=== PATIENT | male | born 1935 | race Caucasian/White ===

== ENCOUNTER → 2017-07-26 | Outpatient (CLI) | payer OTHER | LOC: BHFA 13:00 | PROVIDERS: ATTEND Internal Medicine Interventional Cardiology | DX: I25.10 Atherosclerotic heart disease of native coronary artery without angina pectoris (principal); R06.02 Shortness of breath | CPT/HCPCS: 78452; 93017; A9500; J2785 ==

== ENCOUNTER → 2017-08-06 | Outpatient (CLI) | payer OTHER | LOC: BHFA 14:45 | PROVIDERS: ATTEND Internal Medicine | DX: I25.10 Atherosclerotic heart disease of native coronary artery without angina pectoris (principal); R06.02 Shortness of breath ==

== ENCOUNTER → 2017-08-28 | Outpatient (CLI) | payer OTHER | LOC: BHFA 08:00 | PROVIDERS: ATTEND Internal Medicine Cardiovascular Disease | DX: I25.10 Atherosclerotic heart disease of native coronary artery without angina pectoris (principal); I42.9 Cardiomyopathy, unspecified | CPT/HCPCS: 78472; A9560 ==

== ENCOUNTER 2018-01-27 08:29 | Inpatient (IN) | payer OTHER ==
[2018-01-27] MEDS ORDERED: NS 1,000 ML IV ONE (08:33)
[2018-01-27] MEDS ORDERED: diphenhydrAMINE 25 MG CAP PO ONE (08:33)
[2018-01-27] MEDS ORDERED: FAMOTIDINE 20 MG TAB PO ONE (08:33)
[2018-01-27] MEDS ORDERED: ASPIRIN EC 325 MG TAB PO ONE (08:33)
[2018-01-27] MEDS ORDERED: DIAZEPAM 5 MG TAB PO ONE (08:33)
[2018-01-27 09:28] LABS: PLATELET COUNT 191 10^3/uL (150-400)
[2018-01-27 09:36] LABS: INR 1.19 (0.83-1.16); PROTIME(PATIENT) 15.3 SEC (12.0-15.0)
[2018-01-27] MEDS ORDERED: fentaNYL 100 MCG/2 ML INJ ONE (09:48)
[2018-01-27] MEDS ORDERED: MIDAZOLAM 2 MG/2 ML VIAL ONE ×2 (09:48)
[2018-01-27] MEDS ORDERED: VERAPAMIL 5 MG/2 ML VIAL ONE (09:48)
[2018-01-27] MEDS ORDERED: LIDOCAINE 1% 300 MG/30 ML SDV ONE (09:48)
[2018-01-27] MEDS ORDERED: IOPAMIDOL (ISOVUE-370) 150 ML BTL IV ONE (09:49)
[2018-01-27] MEDS ORDERED: HEPARIN 10,000 UNIT/10 ML MDV (1,000 UNIT/ML) ONE (09:49)
--- NOTE | 2018-01-27 10:57 | PDHPUP ---
History & Physical Update H&P update statement: This history and physical update is based on an assessment of the patient which was completed after admission or registration (within 24 hours), but prior to the surgery/procedure. H&P update: H&P reviewed & patient examined, no change in patient's condition since H&P completed
--- NOTE | 2018-01-27 10:58 | PDPROPOC ---
Sedation Plan of Care Sedation Plan of Care: vital signs stable, mental status noted, patient educated of risks, benefits, alternatives, patient can tolerate sedation ASA Classification: ASA 2 Planned drugs: fentanyl, midazolam Mallampati Score: Class 2 Mallampati Reference Image: Patient passed 3-3-2 rule?: Yes
[2018-01-27] MEDS ORDERED: CHLOROPROCAINE HCL 2% 400 MG/20 ML VIAL IF ONE (11:15)
--- NOTE | 2018-01-27 12:14 | PDDXCAT ---
Diagnostic Cath Note - . Date: 01/27/18 Director Export: Tristen Indication: other (Cardiomyopathy, mitral regurgitation,and CHF.) - Procedure Access: right groin Procedure: left heart catheterization, coronary angiography, left ventriculogram , right heart catheterization - Materials Left Heart Cath size: 6F Left Heart Cath materials: standard multipack (JL4, JR4, pigtail) Right Heart Cath size: 7F Right Heart Cath materials: PWP catheter - Findings-Left Heart Catheterization LM: Normal. LAD: Proximal LAD 80-90% with diffuse moderate irregularities in the mid-LAD and a 50-60% lesion at the beginning of the distal 1/3 of the LAD. First diagonal 90% proximal. Second diagonal 100% proximal with faint tyqy-vy-wdnr collaterals. LCX: Proximal circumflex has a complex high-grade stenosis; OM-2 90% proximal; distal circumflex with moderate irregularities. RCA: Distal RCA 100%. PDA and PLB system receive [id number] collaterals. EDP: 18 mmHg LVEF: 15% Wall motion: Global hypokinesis; significant mitral regurgitation noted. - Findings-Right Heart Catheterization RA: 14 mmHg RV: 64/10 mmHg PA: 64/38/49 mmHg O2 sat 52.4% PAOP: 28 mmHg AO: 103/57/76 mmHg O2 sat 93.0% CO: 3.7 L/min CI: 1.97 L/min/sq mtr Assessment: 1) Ischemic cardiomyopathy with severely reduced LV systolic function. 2) Significant mitral regurgitation. 3) Severe multivessel CAD as described above. Plan: Admit to hospital. CT surgery consult to consider CABG and MV repair/ replacement. If patient is felt not to be a candidate for surgery or declines offer of surgery, will plan for ICD implantation. Patient Problems: Problems Problem Status Onset Atrial fibrillation Acute Congestive heart failure Acute Elevated troponin Acute Pulmonary embolus Acute
[2018-01-27] MEDS ORDERED: ATROPINE SULFATE 1 MG/10 ML SYR IVP PRN (12:27)
[2018-01-27] MEDS ORDERED: ONDANSETRON 4 MG/2 ML VIAL IVP PRN (12:27)
[2018-01-27] MEDS ORDERED: HYDROCODONE/APAP 5/325 TAB PO PRN (12:27)
[2018-01-27] MEDS ORDERED: NITROGLYCERIN 0.4 MG BTL SL PRN (12:27)
[2018-01-27] MEDS ORDERED: ACETAMINOPHEN 325 MG TAB PO PRN (12:27)
[2018-01-27] MEDS ORDERED: NS 1,000 ML IV SCH (12:30)
[2018-01-28] MEDS ORDERED: FLUTICASONE NASAL 120 SPRAYS/16 GM MDI EACHNARE SCH (09:00)
[2018-01-28] MEDS ORDERED: APIXABAN 5 MG TAB PO SCH (09:00)
[2018-01-28] MEDS: FUROSEMIDE 100 MG/10 ML VIAL IVP SCH ×2 (09:11→15:03)
[2018-01-28] MEDS: THYROID 60 MG TAB PO SCH ×3 (09:13→12:49)
[2018-01-28] MEDS: CYANO/VITAMIN B12 1000 MCG TAB PO SCH (09:15)
[2018-01-28] MEDS: POTASSIUM CL 10 MEQ TAB PO SCH (09:16)
[2018-01-28] MEDS: CHOLECALCIFEROL VIT D3 1,000 UNITS TAB PO SCH (09:16)
[2018-01-28] MEDS: METOPROLOL SUCCINATE XR 100 MG TAB PO SCH (09:16)
[2018-01-28] MEDS: ALLOPURINOL 300 MG TAB PO SCH (09:17)
[2018-01-28] MEDS: SPIRONOLACTONE 25 MG TAB PO SCH (09:20)
[2018-01-28] MEDS: SACUBITRIL/VALSARTAN 24/26MG 1 EA TAB PO SCH ×2 (09:22→20:36)
--- NOTE | 2018-01-28 12:01 | PDMN ---
Medical Necessity Medical necessity: [facility], cardiovascular surgery or procedure: 82 y/o s/p left heart catheterization, coronary angiography, left ventriculogram, right heart catheterization for Cardiomyopathy, mitral regurgitation,and CHF. Findings per cardiology 1) Ischemic cardiomyopathy with severely reduced LV systolic function. 2) Significant mitral regurgitation. 3) Severe multivessel CAD. Admit to hospital, cardiothoracic surgery consult to consider CABG and MV repair/replacement, at the very least pacemaker placement. pt is tachy 110s, increasing O2 needs noted, BNP 78951, creat 1.6.
[2018-01-28] MEDS ORDERED: MAGNESIUM HYDROXIDE 30 ML UDCUP PO PRN (12:46)
[2018-01-28] MEDS ORDERED: POLYETHYLENE GLYCOL 3350 17 GM PKT PO PRN (12:46)
[2018-01-28] MEDS ORDERED: LACTULOSE 20 GM/30 ML UDCUP PO PRN (12:46)
[2018-01-28] MEDS ORDERED: BISACODYL 10 MG SUPP PR PRN (12:46)
[2018-01-28] MEDS ORDERED: BACITRACIN IRRIGATION/NS 50,000 UNITS/1,000 ML BTL IRR ONE (12:52)
[2018-01-28] MEDS ORDERED: NS 1,000 ML IV ONE (12:52)
[2018-01-28] MEDS: DIGOXIN 500 MCG/2 ML AMP IVP SCH ×2 (13:20→18:40)
--- NOTE | 2018-01-28 13:38 | PDCARPN ---
Cardiology Progress Note Assessment/Plan: 82 y/o male with a complex cardiac history, admitted for catheterization to assess for revascularization options; to be followed by ICD implantation. Coronary Artery Disease: Cardiac cath yesterday revealed multivessel CAD. CT surgery reviewed his films and clinical history. Opinion is that he is not a candidate for coronary bypass surgery. - Continue medical therapy. He does not report significant problems with angina. Anatomy not optimal for PCI. However, if a change in clinical situation dictates, consideration could be given to high-risk PCI of the worst lesions in the LAD and circumflex with the awareness that, in case of complications, salvage CABG would not be an option. - Will start statin therapy to reduce the risk of plaque activation. LDL currently 117; goal will be less than 70. Patient took statins in the past and had side effects that he does not necessarily recall. He is willing to try again. Ischemic Cardiomyopathy: Severely reduced left ventricular systolic function with an EF of 10-15%. Mitral Regurgitation: Moderate MR by echocardiography in December of this year. - Again, not a candidate for surgery. Chronic Systolic CHF: Has evidence of volume overload with peripheral edema. LVEDP and PCWP elevated on cardiac catheterization. - Continue twice daily intravenous furosemide. - If response is suboptimal, will consider furosemide drip. Chronic Atrial Fibrillation: Ventricular rate suboptimally controlled with heart rate 110-120 bpm. - Add digoxin. Sudden Cardiac Prevention: I had a lengthy discussion with the patient and his daughter about his current cardiac status. He would still prefer to proceed with ICD implantation. Also spoke with Dr. Alexandre. - Plan is for ICD implantation tomorrow. 01/28/18 13:35 Subjective: No CV complaints. Reviewed/Discussed With: family Objective: Vital Signs (8 Hrs) Temp Pulse Resp BP Pulse Ox 01/28/18 13:20 101 H 01/28/18 11:27 36.9 C 112 H 18 103/62 98 01/28/18 07:39 36.7 C 113 H 18 120/88 H 97 Intake/Output (24 Hrs) 01/27/18 01/28/18 01/29/18 05:59 05:59 05:59 Intake Total 1395 Output Total 975 560 Balance 420 -560 Intake: Oral (ml) 200 IV Infused (ml) 1195 Ns 1,000 ml @ 75 mls/hr 1195 IV CONT MELY Rx#: [id number] Output: Urine (ml) 975 560 Urinal 975 560 Other: Weight 77.8 kg Number of Voids Urinal 2 1 Result Diagrams: 01/27/18 09:11 01/27/18 09:11 - Physical Exam Constitutional: no apparent distress, other Eyes: anicteric sclera Ears, Nose, Mouth, Throat: moist mucous membranes Cardiovascular: irregularly irregular Respiratory: other (decreased at bases), No no crackles, No no wheezes Gastrointestinal: normoactive bowel sounds, no tenderness, no masses Skin: other (2-3+ edema) Neurologic: AAOx3 Psychiatric: not anxious ICD10 Worksheet Patient Problems: Problems Problem Status Onset Congestive heart failure Acute Atrial fibrillation Acute Elevated troponin Acute Pulmonary embolus Acute
--- NOTE | 2018-01-28 14:24 | ASMTCASEMG ---
Living Arrangements What is your living Answers: With Spouse arrangement? Who do you live with? Type Of Residence What kind of residence do Answers: House you live in? Discharge Plan Comments Coordination Status Comments Notes: Pt is a 82 y/o man admitted for CHF, afib, elevated troponin and pulmonary embolus. Therapies have been ordered and awaiting recommendations. Needs are TBD at this time. CM to follow. Plan: TBD Date Signed: 01/28/2018 02:21 PM Electronically Signed By:KATRIN Doll
[2018-01-28] MEDS: SENNOSIDES/DOCUSATE SODIUM TAB PO SCH (20:37)
[2018-01-28] MEDS: traZODone 50 MG TAB PO SCH (20:37)
[2018-01-28] MEDS: FLUTICASONE NASAL 120 SPRAYS/16 GM MDI EACHNARE SCH (20:41)
[2018-01-29] MEDS: DIGOXIN 500 MCG/2 ML AMP IVP SCH ×2 (01:06→08:57)
[2018-01-29] MEDS ORDERED: BACITRACIN IRRIGATION/NS 50,000 UNITS/1,000 ML BTL IRR ONE (06:00)
[2018-01-29] MEDS: THYROID 60 MG TAB PO SCH (06:08)
[2018-01-29 07:42] LABS: INR 1.32 (0.83-1.16); PROTIME(PATIENT) 16.6 SEC (12.0-15.0)
[2018-01-29] MEDS ORDERED: ASPIRIN EC 325 MG TAB PO ONE ×2 (08:58→11:40)
[2018-01-29] MEDS ORDERED: TEMAZEPAM 15 MG CAP PO PRN (08:58)
[2018-01-29] MEDS ORDERED: FAMOTIDINE 20 MG TAB PO ONE (08:58)
[2018-01-29] MEDS ORDERED: DIAZEPAM 5 MG TAB PO ONE (08:58)
[2018-01-29] MEDS ORDERED: diphenhydrAMINE 25 MG CAP PO ONE ×2 (08:58→11:39)
[2018-01-29] MEDS ORDERED: IOPAMIDOL (ISOVUE-370) 150 ML BTL IV ONE ×2 (11:24→12:36)
[2018-01-29] MEDS ORDERED: MIDAZOLAM 2 MG/2 ML VIAL ONE (11:24)
[2018-01-29] MEDS ORDERED: fentaNYL 100 MCG/2 ML INJ ONE (11:24)
[2018-01-29] MEDS ORDERED: LIDOCAINE 1% 300 MG/30 ML SDV ONE (11:24)
[2018-01-29] MEDS ORDERED: EPINEPHrine 1 MG/10 ML SYR IVP ONE (12:03)
[2018-01-29] MEDS ORDERED: ATROPINE SULFATE 1 MG/10 ML SYR ONE (12:03)
[2018-01-29] MEDS ORDERED: BIVALIRUDIN 250 MG/5 ML VIAL IV ONE (12:03)
[2018-01-29] MEDS ORDERED: NITROGLYCERIN 1,500 MCG/15 ML VIAL MISC ONE (12:04)
--- NOTE | 2018-01-29 12:57 | CPEKG ---
Test Reason : OPEN Blood Pressure : / mmHG Vent. Rate : 115 BPM Atrial Rate : 129 BPM P-R Int : 100 ms QRS Dur : 111 ms QT Int : 338 ms P-R-T Axes : 000 002 166 degrees QTc Int : 468 ms Atrial fibrillation Repol abnrm suggests ischemia, diffuse leads Similar ST/T wave changes noted on prior Confirmed by Don Ibarra ([id number]) on 01/29/2018 12:56:58 PM Referred By: Confirmed By:Don Ibarra
[2018-01-29] MEDS ORDERED: PRASUGREL HCL 10 MG TAB ONE (13:10)
--- NOTE | 2018-01-29 13:20 | CPEKG ---
Test Reason : OPEN Blood Pressure : / mmHG Vent. Rate : 085 BPM Atrial Rate : 000 BPM P-R Int : 146 ms QRS Dur : 108 ms QT Int : 343 ms P-R-T Axes : 000 012 206 degrees QTc Int : 408 ms Atrial fibrillation Multiple ventricular premature complexes Nonspecific repol abnormality, diffuse leads Confirmed by Don Ibarra ([id number]) on 01/29/2018 1:19:59 PM Referred By: Confirmed By:Don Ibarra
[2018-01-29] MEDS ORDERED: LORazepam 2 MG/ML INJ IVP PRN (13:34)
[2018-01-29] MEDS ORDERED: PRASUGREL HCL 10 MG TAB PO ONE (13:34)
[2018-01-29] MEDS ORDERED: NS 1,000 ML IV SCH (13:45)
--- NOTE | 2018-01-29 13:47 | PDDXCAT ---
Diagnostic Cath Note - . Date: 01/29/18 Utility Sales Representative: Tristen Indication: other (Severe, multivessel CAD with ischemic cardiomyopathy; CT surgery service deemed him too high-risk for CABG.) - Procedure Access: right groin Procedure: other (PCI of proximal LAD, proximal circumflex, and proximal obutse marginal-2.) - Materials Left Heart Cath size: 7F Complications: None Estimated blood loss: <50ml Closure method: Angioseal Assessment: Successful PCI of proximal LAD, proximal cicumflex, and proximal OM- 2 using single GIOVANNI at each site. Plan: The patient will be continued on maximally-tolerated, optimal medical therapy. His LV systolic function will be reassessed in approximately 6 weeks. If his LVEF remains below 30%, he will then be a candidate for ICD implantation. Intervention: Please refer to the diagnostic cardiac cath report from 01/26. The patient was evaluated by the CT surgery service and was deemed not to be a candidate for CABG and mitral valve repair/replacement. Consideration was given to continued medical therapy and implantation of an ICD for prevention of sudden cardiac versus performing PCI of any amenable lesions. The patient was presented at our weekly case conference this a.m. The decision was unanimous for percutaneous revascularization. A 7 Tajik sheath was placed in the right femoral artery. A 7 Tajik CLS-3.5 guide catheter was advanced to the left main. An Intuition guidewire was advanced to the apical portion of the left anterior descending. A 2.5 x 12 mm Emerge balloon was used for predilatation a focal 80-90% lesion in the proximal LAD. A 2.75 x 16 mm Synergy stent was advanced into position and was deployed at high pressure. Subsequent angiograms demonstrated 0% residual stenosis and MARJORIE-III flow. The Intuition guidewire was then redirected to the distal portion of the 2nd obtuse marginal branch of the circumflex. Predilatation was performed using a 2.0 x 12 mm Emerge balloon. Attempts to advance a 2.25 x 16 mm Synergy stent into the obtuse marginal branch were met with significant resistance. Therefore , additional predilatation inflations with the 2.0 x 12 mm balloon were performed in the proximal portion of the obtuse marginal branch. Again, attempts to advance a stent were unsuccessful. A second Intuition guidewire was advanced to the distal portion of the circumflex. Predilatation of a focal 80% stenosis in the proximal circumflex was performed with the original 2.5 x 12 mm Emerge balloon. The 2.25 x 16 mm Synergy stent was then successfully negotiated into position and was deployed at high pressure in the proximal portion of the obtuse marginal branch. Subsequent angiography demonstrated 0% residual stenosis and MARJORIE-III flow. The stent delivery system and guidewire were removed from the 2nd obtuse marginal branch. Attempts to advance a 3.5 x 8 mm Synergy stent into the proximal circumflex lesion were also met with significant resistance. Additional predilatation of the proximal circumflex was performed using a 3.0 x 8 mm Emerge balloon. The 3.5 x 8 mm Synergy stent was then successfully negotiated into position at the proximal circumflex and was deployed at high pressure. Subsequent angiography demonstrated 0% residual stenosis and MARJORIE-III flow. Patient Problems: Problems Problem Status Onset Congestive heart failure Acute Atrial fibrillation Acute Elevated troponin Acute Pulmonary embolus Acute
--- NOTE | 2018-01-29 14:51 | CPEKG ---
Test Reason : OPEN Blood Pressure : / mmHG Vent. Rate : 074 BPM Atrial Rate : 000 BPM P-R Int : 129 ms QRS Dur : 107 ms QT Int : 353 ms P-R-T Axes : 000 031 241 degrees QTc Int : 392 ms Atrial fibrillation Incomplete left bundle branch block Low voltage, extremity leads Probable LVH with secondary repol abnrm Confirmed by Don Ibarra ([id number]) on 01/29/2018 2:51:42 PM Referred By: Confirmed By:Don Ibarra
[2018-01-29] MEDS: CHOLECALCIFEROL VIT D3 1,000 UNITS TAB PO SCH (14:53)
[2018-01-29] MEDS: CYANO/VITAMIN B12 1000 MCG TAB PO SCH (14:53)
[2018-01-29] MEDS: FUROSEMIDE 100 MG/10 ML VIAL IVP SCH ×3 (14:53→18:41)
[2018-01-29] MEDS: SENNOSIDES/DOCUSATE SODIUM TAB PO SCH ×2 (14:54→21:43)
[2018-01-29] MEDS: SACUBITRIL/VALSARTAN 24/26MG 1 EA TAB PO SCH ×2 (14:54→21:38)
[2018-01-29] MEDS: ATORVASTATIN CALCIUM 10 MG TAB PO SCH (16:49)
[2018-01-29] MEDS: METOPROLOL SUCCINATE XR 100 MG TAB PO SCH (16:49)
[2018-01-29] MEDS: ALLOPURINOL 300 MG TAB PO SCH (16:49)
[2018-01-29] MEDS: SPIRONOLACTONE 25 MG TAB PO SCH (16:50)
[2018-01-29] MEDS: POTASSIUM CL 10 MEQ TAB PO SCH (16:50)
[2018-01-29] MEDS: APIXABAN 5 MG TAB PO SCH (21:38)
[2018-01-29] MEDS: traZODone 50 MG TAB PO SCH (21:38)
[2018-01-29] MEDS: FLUTICASONE NASAL 120 SPRAYS/16 GM MDI EACHNARE SCH (21:42)
[2018-01-30] MEDS: THYROID 60 MG TAB PO SCH (07:07)
[2018-01-30 08:37] VITALS: BP 134/76
[2018-01-30] MEDS ORDERED: ASPIRIN EC 325 MG TAB PO SCH (09:00)
[2018-01-30] MEDS ORDERED: PRASUGREL HCL 10 MG TAB PO SCH (09:00)
[2018-01-30] MEDS ORDERED: ASPIRIN 81 MG CHEWABLE TAB PO SCH (09:39)
[2018-01-30] MEDS: SACUBITRIL/VALSARTAN 24/26MG 1 EA TAB PO SCH (09:55)
[2018-01-30] MEDS: CHOLECALCIFEROL VIT D3 1,000 UNITS TAB PO SCH (09:55)
[2018-01-30] MEDS: ATORVASTATIN CALCIUM 10 MG TAB PO SCH (09:56)
[2018-01-30] MEDS: METOPROLOL SUCCINATE XR 100 MG TAB PO SCH (09:56)
[2018-01-30] MEDS: APIXABAN 5 MG TAB PO SCH (09:57)
[2018-01-30] MEDS: POTASSIUM CL 10 MEQ TAB PO SCH (09:57)
[2018-01-30] MEDS: SENNOSIDES/DOCUSATE SODIUM TAB PO SCH (09:57)
[2018-01-30] MEDS: SPIRONOLACTONE 25 MG TAB PO SCH (09:58)
[2018-01-30] MEDS: FUROSEMIDE 100 MG/10 ML VIAL IVP SCH (10:04)
[2018-01-30] MEDS: CYANO/VITAMIN B12 1000 MCG TAB PO SCH (10:17)
--- NOTE | 2018-01-30 11:25 | GDS ---
[f rep st] DISCHARGE SUMMARY REASON FOR ADMISSION: Coronary artery disease and ischemic cardiomyopathy. HOSPITAL COURSE: Please refer to Dr. Winston Guerrero's office note of January 22, which serves as the admission history and physical for this hospital encounter. Please also refer to my dictated cardiac catheterization reports. Briefly, the patient is an 82-year-old male with a remote history of myocardial infarction in 1992. He has a longstanding cardiomyopathy with severely reduced left ventricular systolic function. He also has mitral regurgitation, which is at least moderate. At his last office appointment, Dr. Guerrero arranged for the patient to undergo cardiac catheterization to assess for any potential revascularization opportunities. If there were no treatable coronary lesions identified, the plan was for him to then undergo ICD implantation by Dr. Stephen Alexandre. I performed his cardiac catheterization on January 27. He was found to have severe multivessel CAD. He was evaluated by the CT Surgery service for consideration of coronary artery bypass surgery with mitral valve repair or replacement. Because of his comorbidities, CT Surgery deemed him not to be a candidate for open heart surgery. The patient was then presented at our weekly case conference. It was felt that he might benefit from PCI of at least some of his high-grade stenoses. On January 29, I performed PCI with drug-coated stent placement of the proximal LAD, proximal circumflex, and proximal second obtuse marginal branch. The patient received a single stent at each site. The angiographic outcome was excellent. He tolerated the procedure well without any hemodynamic instability. Today the patient is doing well and is stable for discharge. RECOMMENDATIONS AND DISPOSITION ON DISCHARGE: The patient is discharged in stable condition. He should not drive for the next 3 days. Please refer to the medication section of the electronic chart. He will continue his previous home medications. MEDICATIONS: New medications consist of: 1. Aspirin 81 mg per day. 2. Effient 10 mg per day. 3. Atorvastatin 10 mg per day. I would like for him to continue aspirin for 4 weeks. Since he is on systemic anticoagulation in the form of Eliquis, his aspirin can be discontinued at that point, and he will continue Effient for 12 months. A year from now, his Effient can be discontinued, and he should resume low-dose aspirin. The patient had taken statin medications in the past and had some type of side effects. I felt that it was important for him to be on at least a low-dose statin to help stabilize plaques and reduce the risk for plaque activation. The patient is willing to try taking a statin again and is somewhat optimistic that he can tolerate it now that he is also taking CoQ10. The patient will follow up with Dr. Guerrero in 1-2 weeks. DISCHARGE DIAGNOSES: 1. Coronary artery disease. 2. Ischemic cardiomyopathy. 3. Chronic systolic congestive heart failure. /[id number]/MODL MTDD
[2018-01-30] MEDS: ALLOPURINOL 300 MG TAB PO SCH (11:30)
--- NOTE | 2018-01-30 12:30 | PDIAF ---
- Diagnosis Code Status: Full Code - Medication Management Discharge Medications: Medications to Continue on Transfer Allopurinol [Allopurinol 300 MG (RX)] 150 mg PO DAILY 01/23/18 [Last Taken 1 Day Ago ~01/26/18] Apixaban [Eliquis] 5 mg PO BID 01/23/18 [Last Taken 01/23/18] Cholecalciferol Vit D3 [Vitamin D3 (*)] 1,000 units PO DAILY 01/23/18 [Last Taken 1 Day Ago ~01/26/18] Cyanocobalamin [Vitamin B12 (*)] 5,000 mcg PO DAILY 01/23/18 [Last Taken 1 Day Ago ~01/26/18] Fluticasone Nasal [Flonase Nasal [place]] 1 sprays NASAL DAILY 01/23/18 [Last Taken 1 Day Ago ~01/26/18] Herbals/Supplements -Info Only 1 ea PO DAILY 01/23/18 [Last Taken 1 Day Ago ~] Metoprolol Succinate Xr [Toprol Xl 100 mg (*)] 100 mg PO DAILY 01/23/18 [Last Taken 1 Day Ago ~01/26/18] Potassium Cl [Klor-Con 10 meq (RX)] 10 meq PO DAILY 01/23/18 [Last Taken 1 Day Ago ~01/26/18] Sacubitril/Valsartan 24/26Mg [Entresto 24 mg/26 mg (RX)] 1 ea PO BID 01/23/18 [ Last Taken 1 Day Ago ~01/26/18] Spironolactone [Aldactone 25 MG (*)] 25 mg PO DAILY 01/23/18 [Last Taken 1 Day Ago ~01/26/18] Thyroid [Hazard Thyroid 60 MG (*)] 30 mg PO DAILY 01/23/18 [Last Taken 01/27/18] Torsemide [Demadex] 50 mg PO DAILY14 01/23/18 [Last Taken 1 Day Ago ~01/26/18] Torsemide [Demadex] 100 mg PO DAILY 01/23/18 [Last Taken 1 Day Ago ~01/26/18] traZODone [traZODONE 50MG (*)] 50 mg PO HS 01/23/18 [Last Taken 1 Day Ago ~01/26] Aspirin EC [Aspirin EC 325 mg (*)] 81 mg PO DAILY #30 tab 01/30/18 [Last Taken Unknown] Atorvastatin Calcium [Lipitor 10 mg (*)] 10 mg PO DAILY #90 tab 01/30/18 [Last Taken Unknown] Prasugrel HCl [Effient 10mg (*)] 10 mg PO DAILY #90 tab 01/30/18 [Last Taken Unknown] Discharge Medications: Refer to the Discharge Home Medication list for PRN reason. - Orders Services needed: Home Care, Registered Nurse, Physical Therapy Home Care Face to Face: I certify that this patient was under my care and that I had the required [id number] encounter meeting the encounter requirements on the discharge day. My findings support the fact that the patient is homebound as defined in Home Care Face to Face Continued: CMS Chapter 7 Medicare Benefits Manual 30.1.1 , The condition of the patient is such that there exists a normal inability to leave home and consequently, leaving home would require a considerable and taxing effort. Diet Texture: Regular Texture Diet, Thin Liquids, Meds Whole in Puree Additional Instructions: No driving for three days. No lifting more than 10 lbs. Okay to shower, but no submerging in water such as bathtub or hot tub. Any signs of infection; redness, fever, chills, notify the provider. If the groin becomes painful or hard, put pressure on the site for 10 minutes, if bleeding does not stop go to the emergency room. - Follow Up Care Current Providers and Referrals: Winston Guerrero MD [Medical Doctor] - agency to contact patient (A notification has been sent to the [facility] nurse who works with Dr. Guerrero. She will contact you to arrange a followup appointment with him in the near future.)
--- NOTE | 2018-01-30 13:22 | ASDISCHSUM ---
Discharge Information Plan Status:Home with Home Health Medically Cleared to Leave:01/30/2018 Discharge Date:01/30/2018 CM D/C Disposition: ADT D/C Disposition: Projected Discharge Date:01/30/2018 11:00 AM Transportation at D/C: Discharge Delay Reason: Follow-Up Date:01/30/2018 11:00 AM Discharge Slot: Final Diagnosis: Placement Information Referral Type:*Home Health Care Services Referral ID:[id number] Provider Name:[facility] Address 1:[address] Phone Number: Address 2:[address] Fax Number: City:[place] Selection Factors: State:[place] Patient Contact Information Contact Name:LIZBET HORVATH Relationship:Daughter Address:[address] City:[facility] Phone: State/Zip Code:[place] [address] Email: Financial Information Financial Class:Medicare Primary Plan Desc:MEDICARE INPATIENT Primary Plan Number:[id number] Secondary [facility] Desc[facility] Secondary Plan Number:[id number] Assessment Information LACE LACE Length of stay for Answers: 3 days current admission Acuity / Level of Answers: Yes Care: Did the patient have an inpatient admission? Comorbidities - select Answers: Congestive heart failure all that apply Coronary Artery Disease Previous myocardial infarction # of Emergency department Answers: 0 visits in the last 6 months Score: 11 Date Signed: 01/30/2018 01:03 PM Electronically Signed By:KATRIN Doll [facility] Initial CM Assessment Living Arrangements What is your living Answers: With Spouse arrangement? Who do you live with? Type Of Residence What kind of residence do Answers: House you live in? Discharge Plan Comments Coordination Status Comments Notes: Pt is a 82 y/o man admitted for CHF, afib, elevated troponin and pulmonary embolus. Therapies have been ordered and awaiting recommendations. Needs are TBD at this time. CM to follow. Plan: TBD Date Signed: 01/28/2018 02:21 PM Electronically Signed By:KATRIN Doll Case Management Discharge Plan Note Case Management Discharge Discharge Order Complete? Answers: Yes Patient to Obtain Answers: via Family Medications Transportation Arranged Answers: Family/Friends EMTALA Complete Answers: No Case Management Transport Answers: No Form Complete Faxed Final Orders Answers: Yes Agency/Facility Transfer Answers: Yes Report Printed & Faxed to Receiving Agency Family Notified Answers: Yes Discharge Comments Notes: Pts case discussed w/ Jovana RN and Levi, PA. Pt is being discharged today. PT is recommending HC. CM met w/ daughter in law and pt for dispo planning. Both are agreeable to having HC. Daughter in law will stay w/ pt. Daughter in law made an appointment for pt to follow up w/ his PCP today. PCP will be writing order for o2. Referral made to [facility]. Pts address is [address] [place] [id number]. CM confirmed pts phone number. CM called [facility] and they are able to accept referral. CM available for changes. Plan: [facility]; PT, RN Date Signed: 01/30/2018 01:01 PM Electronically Signed By:KATRIN Doll Intervention Information Intervention Type:*IM-Signed Date of Service:01/30/2018 11:06 AM Patient Type:Inpatient Staff Member:Lidia Valle Hours: Discipline: Severity: Comment:
--- NOTE | 2018-01-30 13:23 | ASMTDCNOTE ---
Case Management Discharge Discharge Order Complete? Answers: Yes Patient to Obtain Answers: via Family Medications Transportation Arranged Answers: Family/Friends EMTALA Complete Answers: No Case Management Transport Answers: No Form Complete Faxed Final Orders Answers: Yes Agency/Facility Transfer Answers: Yes Report Printed & Faxed to Receiving Agency Family Notified Answers: Yes Discharge Comments Notes: Pts case discussed w/ DANYEL Whaley and Levi, PA. Pt is being discharged today. PT is recommending HC. CM met w/ daughter in law and pt for dispo planning. Both are agreeable to having HC. Daughter in law will stay w/ pt. Daughter in law made an appointment for pt to follow up w/ his PCP today. PCP will be writing order for o2. Referral made to [facility]. Pts address is [address] [place] [id number]. CM confirmed pts phone number. CM called [facility] and they are able to accept referral. CM available for changes. Plan: [facility]; PT, RN Date Signed: 01/30/2018 01:01 PM Electronically Signed By:KATRIN Doll
== END 2018-01-30 13:08 | disposition home health service (06) | DRG 247 ==
LOC: FCATH 08:29 → F2W 12:28
PROVIDERS: ADMIT Internal Medicine Interventional Cardiology; ATTEND Internal Medicine Interventional Cardiology
PROC: B2111ZZ Fluoroscopy of Multiple Coronary Arteries using Low Osmolar Contrast (ICD-10-PCS; 2018-01-27)
PROC: 4A023N8 Measurement of Cardiac Sampling and Pressure, Bilateral, Percutaneous Approach (ICD-10-PCS; 2018-01-27)
PROC: B2151ZZ Fluoroscopy of Left Heart using Low Osmolar Contrast (ICD-10-PCS; 2018-01-27)
PROC: 027236Z Dilation of Coronary Artery, Three Arteries with Three Drug-eluting Intraluminal Devices, Percutaneous Approach (ICD-10-PCS; principal; 2018-01-29)
DX: I25.10 Atherosclerotic heart disease of native coronary artery without angina pectoris (principal); I25.5 Ischemic cardiomyopathy; I25.2 Old myocardial infarction; I34.0 Nonrheumatic mitral (valve) insufficiency; I50.22 Chronic systolic (congestive) heart failure; I48.2 Chronic atrial fibrillation; G47.31 Primary central sleep apnea; J44.9 Chronic obstructive pulmonary disease, unspecified; N18.9 Chronic kidney disease, unspecified; Z79.82 Long term (current) use of aspirin; Z79.02 Long term (current) use of antithrombotics/antiplatelets
CPT/HCPCS: 92610-GN; 97116-GP; 97161-GP; 97166-GO; C1725; C1760; C1769; C1874; C1887; C9600; C9601; G8978-GP-CJ; G8979-GP-CI; G8987-GO-CK; G8988-GO-CI; G8996-GN-CI; G8997-GN-CI; J0461; J0583; J1160; J1644; J1940; J2250; J2400; J3010; Q9967

== ENCOUNTER → 2018-04-11 | Outpatient (CLI) | payer OTHER | LOC: BHFA 14:00 | PROVIDERS: ATTEND Internal Medicine Cardiovascular Disease | DX: R06.02 Shortness of breath (principal); R53.83 Other fatigue; I50.9 Heart failure, unspecified ==